=== PATIENT | female | born 1945 | race Caucasian/White ===

== ENCOUNTER 2023-09-02 09:38 | Day surgery (SDC) | payer MEDICARE, OTHER ==
[~2023-09-02 09:38] MED LIST: AMLO5; ASCO1ER; Atropine Sulfate 0.1 MG/ML 10ML SYR ONE; Glycopyrrolate 0.2 MG/ML 1MLVIAL ONE; IVERMECTIN3 MG; LOSA25 PO; LOSA50 PO; Lactated Ringer's 0 ML IV ONE; Lidocaine 2% 5 ML SDV ONE; Lidocaine HCl/Pf 1% 5 ML VIAL ONE; Methylene Blue 1% 100 MG/10 ML VIAL ONE; Ondansetron HCl 2 MG / ML 2ML Vial ONE; ePHEDrine Sulfate 50 MG/ML 1ML Injection ONE; propofoL 0 ML IV ONE
--- NOTE | 2023-09-02 11:08 | NUR ---
09/02/23 1108 Sudha Slaughter LATE ENTRY FOR TODAY PT ARRIVED AND STATED THAT SHE VOMITED UP THIS MORNINGS DOSE OF PREP, AND THAT HER LAST BM WAS STILL DARK BROWN. 2 ENEMA'S GIVEN AND AFTER 2ND ENEMA PT'S BM WAS STILL BROWN. DR. LARA NOTIFIED AND CASE WAS CANCELLED. NO IV STARTED. PT INFORMED THAT DR. LARA'S OFFICE WOULD RESCHEDULE COLONOSCOPY AND NOTIFY PT. PT LEFT [facility] AT 1037.
== END 2023-09-02 10:37 | disposition home or self-care (01) ==
LOC: ORSCSDS 09:38
DX: Z86.010 Personal history of colon polyps (principal); Z53.9 Procedure and treatment not carried out, unspecified reason
CPT/HCPCS: J0461; J2001; J2405; J2704; J7120; Q9968